=== PATIENT | male | born 1985 | race African-American/Black ===

== ENCOUNTER 2017-11-13 13:35 | Emergency (ER) | payer OTHER ==
[2017-11-13 14:16] VITALS: BP 124/73
--- NOTE | 2017-11-13 14:22 | UC ---
Lower Extremity/Ankle HPI - HPI Summary HPI Summary: 31 yo male presents with right foot pain. 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 Had immediate pain. Has not taken anything for the pain. Is able to bear weight, but is very painful. Denies numbness or tingling. - History of Current Complaint Chief Complaint: UCLowerExtremity Stated Complaint: FOOT INJURY Time Seen by Provider: 11/13/17 14:21 Hx Obtained From: Patient Onset/Duration: Sudden Onset Severity Initially: Moderate Severity Currently: Severe Pain Intensity: 8 Pain Scale Used: 0-10 Numeric Aggravating Factor(s): Standing, Ambulation Alleviating Factor(s): Rest Able to Bear Weight: Yes Related History: Occupational Injury - Allergies/Home Medications Allergies/Adverse Reactions: Allergies Allergy/AdvReac Type Severity Reaction Status Date / Time No Known Allergies Allergy Verified 11/13/17 14:16 Home Medications: Home Medications Magnesium Oxide [Magnesium] 1 tab PO DAILY 11/13/17 [History Confirmed 11/13/17] PMH/Surg Hx/FS Hx/Imm Hx - Additional Past Medical History Additional PMH: None Previously Healthy: Yes - Surgical History Surgical History: Yes Surgery Procedure, Year, and Place: HEART CATH, DENTAL - Family History Known Family History: Positive: None - Social History Occupation: Employed Full-time Lives: With Family Alcohol Use: Rare Substance Use Type: Marijuana Smoking Status (MU): Light Every Day Tobacco Smoker Type: Cigarettes Amount Used/How Often: 1/2 PPD Length of Time of Smoking/Using Tobacco: 10 YEARS Have You Smoked in the Last Year: Yes - Immunization History Most Recent Tetanus Shot: does not recall Review of Systems Constitutional: Negative Skin: Negative Respiratory: Negative Cardiovascular: Negative Neurovascular: Negative Musculoskeletal: Other: - Right foot pain Neurological: Negative Psychological: Negative All Other Systems Reviewed And Are Negative: Yes Physical Exam - Summary Physical Exam Summary: GENERAL: NAD. WDWN. No pain distress. SKIN: No rashes, sores, lesions, or open wounds. NECK: Supple. Nontender. No lymphadenopathy. CHEST: No accessory muscle use. Breathing comfortably and in no distress. CV: RRR. Without m/r/g. Pulses intact PT and DP. Brisk cap refill. MSK: RIGHT foot: TTP over midfoot with mild edema. FROM. Strength 5/5. No edema or obvious bony deformities. No erythema or ecchymosis. NEURO: Alert. Sensations intact and symmetric B/L LEs PSYCH: Age appropriate behavior. Triage Information Reviewed: Yes Vital Signs: Initial Vital Signs Temp 98.6 F 11/13/17 14:12 Pulse 57 11/13/17 14:12 Resp 18 11/13/17 14:12 BP 124/73 11/13/17 14:12 Pulse Ox 99 11/13/17 14:12 Lower Extremity Course/Dx - Course Course Of Treatment: XR: IMPRESSION: NO ACUTE BONY FINDINGS. Crutches and weight bearing as tolerated. Ibuprofen for pain. RICE. - Differential Dx/Diagnosis Provider Diagnoses: Right foot contusion Discharge - Sign-Out/Discharge Documenting (check all that apply): Discharge/Admit/Transfer - Discharge Plan Condition: Stable Disposition: HOME Patient Education Materials: Foot Contusion (ED) Forms: *Work Release Referrals: Jennifer Jauregui MD [Primary Care Provider] - Additional Instructions: If you develop a fever, shortness of breath, chest pain, new or worsening symptoms - please call your PCP or go to the ED. 1) Rest, Ice, and elevate your foot as much as possible over the next 2-3 days 2) Weight bearing as tolerated 3) Use the crutches as needed for pain relief 4) May take ibuprofen as needed for pain every 6-8hours - Billing Disposition and Condition Condition: STABLE Disposition: HOME
--- NOTE | 2017-11-13 14:52 | RAD ---
INDICATION: Right foot pain COMPARISON: None TECHNIQUE: AP, lateral, and oblique views were obtained. FINDINGS: There is no acute bony change. There is a mild hallux valgus deformity. No additional findings. IMPRESSION: NO ACUTE BONY FINDINGS.
== END 2017-11-13 15:10 | disposition home or self-care (01) ==
LOC: UCEAST 13:35
DX: S90.31XA Contusion of right foot, initial encounter (principal); W20.8XXA Other cause of strike by thrown, projected or falling object, initial encounter; Y93.89 Activity, other specified; Y92.511 Restaurant or cafe as the place of occurrence of the external cause; Y99.0 Civilian activity done for income or pay; F17.210 Nicotine dependence, cigarettes, uncomplicated
CPT/HCPCS: 99203; G0463

== ENCOUNTER 2017-12-10 11:15 | Emergency (ER) | payer OTHER ==
[2017-12-10 11:51] VITALS: BP 101/68
--- NOTE | 2017-12-10 11:54 | UC ---
Ear Complaint HPI - HPI Summary HPI Summary: left ear pain for a few days that is getting worse some sinus congestion - History of Current Complaint Chief Complaint: UCEar Stated Complaint: EAR COMPLAINT Time Seen by Provider: 12/10/17 11:53 Hx Obtained From: Patient Onset/Duration: Sudden Onset, Lasting Days Pain Intensity: 6 Pain Scale Used: 0-10 Numeric Aggravating Factors: Nothing Alleviating Factors: Nothing - Allergies/Home Medications Allergies/Adverse Reactions: Allergies Allergy/AdvReac Type Severity Reaction Status Date / Time No Known Allergies Allergy Verified 12/10/17 11:51 PMH/Surg Hx/FS Hx/Imm Hx Previously Healthy: Yes - Surgical History Surgical History: Yes Surgery Procedure, Year, and Place: HEART CATH, DENTAL - Family History Known Family History: Positive: None - Social History Occupation: Employed Full-time Lives: With Family Alcohol Use: Rare Substance Use Type: Marijuana Smoking Status (MU): Light Every Day Tobacco Smoker Type: Cigarettes Amount Used/How Often: 1/2 PPD Length of Time of Smoking/Using Tobacco: 10 YEARS Have You Smoked in the Last Year: Yes - Immunization History Most Recent Tetanus Shot: does not recall Review of Systems Constitutional: Negative Skin: Negative Eyes: Negative ENT: Ear Ache - left, Nasal Discharge Respiratory: Negative Cardiovascular: Negative Gastrointestinal: Negative Genitourinary: Negative Motor: Negative Neurovascular: Negative Musculoskeletal: Negative Neurological: Negative Psychological: Negative Is Patient Immunocompromised?: No All Other Systems Reviewed And Are Negative: Yes Physical Exam Triage Information Reviewed: Yes Appearance: Well-Appearing, No Pain Distress, Well-Nourished Vital Signs: Initial Vital Signs Temp 98.1 F 12/10/17 11:47 Pulse 54 12/10/17 11:47 Resp 15 12/10/17 11:47 BP 101/68 12/10/17 11:47 Pulse Ox 100 12/10/17 11:47 Vital Signs Reviewed: Yes Eye Exam: Normal Eyes: Positive: Conjunctiva Clear ENT Exam: Normal ENT: Positive: Normal ENT inspection, Hearing grossly normal, Pharynx normal, Nasal congestion, TMs normal - right, TM bulging - left Dental Exam: Normal Neck exam: Normal Neck: Positive: Supple, Nontender Respiratory Exam: Normal Respiratory: Positive: Chest non-tender, Lungs clear, No respiratory distress, No accessory muscle use Cardiovascular Exam: Normal Cardiovascular: Positive: RRR, Brisk Capillary Refill Musculoskeletal Exam: Normal Musculoskeletal: Positive: Strength Intact, ROM Intact, No Edema Neurological Exam: Normal Neurological: Positive: Alert, Muscle Tone Normal Psychological Exam: Normal Skin Exam: Normal Ear Complaint Course/Dx - Course Course Of Treatment: flonase, amoxicillin tylenol, ibuprofen follow with pcp rprn - Differential Dx/Diagnosis Provider Diagnoses: Left otitis media Discharge - Sign-Out/Discharge Documenting (check all that apply): Discharge/Admit/Transfer - Discharge Plan Condition: Stable Disposition: HOME Prescriptions: Amoxicillin PO (*) [Amoxicillin 875 MG (*)] 875 mg PO BID #20 tab Fluticasone NASAL SPRAY 50MCG* [Flonase NASAL SPRAY 50MCG*] 2 spray BOTH NARES DAILY #1 btl Patient Education Materials: Ear Infection (ED), How to Use Nasal [place] (ED) Referrals: Jennifer Jauregui MD [Primary Care Provider] - If Needed - Billing Disposition and Condition Condition: STABLE Disposition: Home
== END 2017-12-10 12:21 | disposition home or self-care (01) ==
LOC: UCEAST 11:15
DX: H66.92 Otitis media, unspecified, left ear (principal); F17.210 Nicotine dependence, cigarettes, uncomplicated
CPT/HCPCS: 99211; G0463